=== PATIENT | male | born 1960 | race Hispanic/Latino ===

== ENCOUNTER 2018-09-15 09:55 | Outpatient (CLI) | payer BC ==
--- NOTE | 2018-09-15 10:40 | XRay Report ---
RIB RADIOGRAPHS - LEFT INDICATION: Injury of thorax, initial encounter. COMPARISON: None similar at this institution. FINDINGS: AP and oblique radiographs to evaluate left ribs, 3 projections suggest mild exaggerated cardiomediastinal silhouette, given limited inspiration. Grossly clear lungs. Specifically, no definite or significantly displaced left rib fracture identified. CONCLUSION: No acute left rib radiographic abnormality with few incidental findings, as described. Please note that some acute rib fractures may be radiographically occult. Thank you for the opportunity to participate in this patient's care.
== END 2018-09-15 09:56 | disposition home or self-care (01) ==
LOC: XRAY 09:55
PROVIDERS: ATTEND Nurse Practitioner Family
DX: S29.9XXA Unspecified injury of thorax, initial encounter (principal); X58.XXXA Exposure to other specified factors, initial encounter; Y93.89 Activity, other specified; Y92.89 Other specified places as the place of occurrence of the external cause; Y99.8 Other external cause status